=== PATIENT | male | born 1985 | race Caucasian/White ===

== ENCOUNTER 2019-12-08 18:15 | Emergency (ER) | payer OTHER ==
[~2019-12-08] VITALS: Ht 182.9 cm; Wt 81.6 kg
[2019-12-08 18:37] VITALS: BP 128/82
[2019-12-08] MEDS ORDERED: FLUORESCEIN SODIUM OPHTH 1 EA STRIP OP ONE (19:00)
[2019-12-08] MEDS ORDERED: FLUORESCEIN SODIUM OPHTH 1 EA STRIP ONE (19:01)
[2019-12-08] MEDS ORDERED: TETRACAINE HCL 0.5% OPHTALMIC 15 ML BOTTLE OP ONE (19:30)
== END 2019-12-08 19:17 | disposition home or self-care (01) ==
LOC: ER 18:15
DX: H10.212 Acute toxic conjunctivitis, left eye (principal)